=== PATIENT | female | born 1985 | race Caucasian/White ===

== ENCOUNTER → 2021-01-17 | Outpatient (CLI) | payer BC, SELFPAY | LOC: ECHO 13:30 | DX: R01.1 Cardiac murmur, unspecified (principal); R00.2 Palpitations; I07.1 Rheumatic tricuspid insufficiency | CPT/HCPCS: ECHO; 93306 ==

== ENCOUNTER → 2021-06-02 | Outpatient (CLI) | payer BC | LOC: HEART 5 15:14 | DX: R00.2 Palpitations (principal) ==